=== PATIENT | male | born 1975 | race Caucasian/White ===

== ENCOUNTER 2021-11-01 12:16 | Emergency (ER) | payer SELFPAY ==
[2021-11-01] VITALS (7 sets, daily range): BP systolic 119–135; BP diastolic 88–101; PULSE 77–122; RESP 11–21; TEMP 36.8–37.2; O2SAT 92–98; BMI 30.4
--- NOTE | 2021-11-01 13:03 | EKG12_ITS ---
Test Reason : SOB Blood Pressure : / mmHG Vent. Rate : 109 BPM Atrial Rate : 109 BPM P-R Int : 160 ms QRS Dur : 068 ms QT Int : 314 ms P-R-T Axes : 041 007 040 degrees QTc Int : 422 ms Sinus tachycardia Low voltage QRS (Limb Leads) Confirmed by JOSÉ MIGUEL MUÑOZ, RISHABH ([id number]), telegraph editor CARI COLLINS ([id number]) on 11/03/2021 9:49:41 AM Referred By: MAKENZIE Confirmed By:RISHABH VALDEZ MD
--- NOTE | 2021-11-01 13:04 | EDS_ITS ---
HPI History of Present Illness Chief Complaint: Shortness of Breath Narrative Narrative: 46-year-old male presenting with dyspnea. He states he has COPD and is a smoker. He states that on a good day he smokes about a half a pack of cigarettes a day and on a bad day he smokes about 2 packs of cigarettes a day. He states he started feeling short of breath this morning at about 830. He denies any fever, chills. He does admit to shortness of breath but does not have any chest pain. He does state that he has some left lower back pain. This hurts worse with twisting and moving. Denies any trauma. No loss of bladder or bowel control. PFSH PFSH Home Medications Vitamin 11/01/21 [History Last Taken Unknown] albuterol sulfate [Ventolin HFA] 1 - 2 puff INHALATION Q4H PRN PRN #8.5 g 11/01/21 [Rx Last Taken Unknown] potassium 11/01/21 [History Last Taken Unknown] prednisone 50 mg PO DAILY 3 Days #15 tab 11/01/21 [Rx Last Taken Unknown] Allergy/AdvReac Type Severity Reaction Status Date / Time hydromorphone [From Dilaudid] Allergy Other Verified 11/01/21 12:17 ibuprofen Allergy Rash Verified 05/25/17 15:47 morphine AdvReac Other Verified 05/25/17 15:47 naproxen AdvReac Other Verified 05/25/17 18:50 Social History Smoking Status: Current every day smoker tobacco type: cigarettes ROS ROS ED Constitutional Constitutional ED: Denies chills, fever(s) or sweats Eyes Eyes: Denies blurry vision ENT ENT ED: Denies rhinorrhea or sore throat Cardiovascular Cardiovascular: Denies chest pain or palpitations Respiratory/Chest Respiratory/Chest: Reports cough, dyspnea and dyspnea on exertion Gastrointestinal Gastrointestinal: Denies abdominal pain, nausea or vomiting Genitourinary Genitourinary ED: Denies dysuria or hematuria Musculoskeletal Musculoskeletal: Denies arthralgias or myalgias Integumentary Denies rash Neurologic Neurologic: Denies headache(s), paresthesias or weakness Psychiatric Psychiatric: Denies anxiety or depression Endocrine Endocrinology: Denies polydipsia or polyuria EXAM Physical Exam Const Vital Signs: 11/01/21 12:17 11/01/21 12:18 11/01/21 12:19 Temperature 98.3 F 98.3 F Temperature Source Oral Oral Pulse Rate 122 H 122 H Respiratory Rate 14 14 Respiratory Effort Normal Non-Labored Respiratory Depth Normal Respiratory Pattern Normal Blood Pressure 126/88 H 126/88 H Blood Pressure Mean 100 100 Pulse Ox 98 98 Oxygen Delivery Method Room Air Room Air Room Air 11/01/21 13:15 11/01/21 13:18 11/01/21 14:18 Temperature 98.2 F 98.9 F Temperature Source Temporal Temporal Pulse Rate 77 97 83 Respiratory Rate 11 L 18 21 H Respiratory Effort Respiratory Depth Respiratory Pattern Normal Blood Pressure 135/101 H 119/92 H Blood Pressure Mean 112 101 Pulse Ox 98 92 Oxygen Delivery Method Room Air Room Air 11/01/21 14:51 Temperature Temperature Source Pulse Rate Respiratory Rate 21 H Respiratory Effort Respiratory Depth Respiratory Pattern Blood Pressure Blood Pressure Mean Pulse Ox Oxygen Delivery Method Positive well nourished General Appearance ED: NAD HEENT Reports moist mucous membranes atraumatic Eyes PERRL and EOMs intact bilaterally Resp normal respiratory effort Auscultation: wheezes throughout GI Palpation: soft Back/Spine Back/Spine Narrative: Left lumbar paraspinal muscular tenderness. No midline spinal deformity or step-off. No CVA tenderness. Extremity normal to inspection General Extremety ED: Negative for edema or tenderness General Extremity: Negative for edema Neuro oriented x3 and CN's II-XII intact bilaterally Sensorium / Orientation: alert Motor Exam: strength 5/5 throughout MDM MDM MDM Narrative Medical decision making narrative: Patient presented with shortness of breath and admits to smoking at least half a pack of cigarettes per day to 2 packs a day. I obtained blood work and his CBC and BMP are essentially unremarkable. High-sensitivity troponin is 4 and is not having chest pain. Although he reports pain it is in his left lower back and not associated with his lungs. EKG on my interpretation was sinus tachycardia with a ventricular rate of 109 bpm without sign of ischemic change patient is not hypoxic, tachypneic. He is slightly tachycardic. He is nontoxic-appearing. His chest x-ray on my interpretation shows no acute cardiopulmonary process and the radiologist does agree. After Solu-Medrol and breathing treatments he feels improved and on reevaluation he is resting comfortably. After waking him he states he feels improved. He feels he can go home. I will provide him with a burst of prednisone and albuterol. Return precautions were discussed. Smoking cessation was discussed. Impression 1. COPD exacerbation Lab Data Attestation: I reviewed the patient's lab results. Labs: Laboratory Results - last 24 hr 11/01/21 11/01/21 12:07 12:07 WBC 11.5 H RBC 5.70 Hgb 18.5 H* Hct 53.5 MCV 93.9 MCH 32.5 H MCHC 34.6 RDW Std Deviation 42.5 RDW Coeff of Mahsa 12.2 Plt Count 252 MPV 10.7 Immature Gran % (Auto) 0.400 Neut % (Auto) 56.1 Lymph % (Auto) 30.6 [place] % (Auto) 11.3 H Eos % (Auto) 1.0 Baso % (Auto) 0.6 Absolute Neuts (auto) 6.4 Absolute Lymphs (auto) 3.51 Nucleated RBC % 0 Diff Path Review May foll Platelet Estimate ADEQUATE RBC Morphology NORM C+C Sodium 141 Potassium 3.9 Chloride 107 Carbon Dioxide 28.0 Anion Gap 6 BUN 11 Creatinine 1.15 Estim Creat Clear Calc 85.49 Est GFR (MDRD) Af Amer 88 Est GFR (MDRD) Non-Af 73 BUN/Creatinine Ratio 9.6 L Glucose 89 Calcium 10.7 H Troponin I High Sens 4 Radiography Diagnostic Testing: Clinical Impression(s) from Imaging Studies Chest X-Ray 11/01/21 13:20 IMPRESSION: No acute abnormality is seen. Electronically Signed: Toni Claros MD at 13:51 EDT , Discharge Plan Triage Chief Complaint: Shortness of Breath ED Provider: Aneesh Girard Dx/Rx/DC Orders Instructions: ED COPD Flare Prescriptions: New albuterol sulfate [Ventolin HFA] 90 mcg/actuation HFA aerosol inhaler 1 - 2 puff inhalation Q4H PRN PRN (Reason: Wheezing) Qty: 8.5 RF: 0 prednisone 10 mg tablet 50 mg PO DAILY 3 Days Qty: 15 RF: 0 No Action Vitamin RF: 0 potassium RF: 0 Primary Care Provider: Care Physician,No Primary Referrals: Joel Guthrie DO [STAFF PHYSICIAN] - 3-5 Days Care Physician,No Primary [Primary Care Provider] - Disposition Disposition: Home, Self Care Discharge Date/Time: 11/01/21 15:11
[2021-11-01] MEDS: Ipratropium/Albuterol Sulfate 3 ML AMPUL.NEB INHALATION (13:13)
[2021-11-01] MEDS: Albuterol 2.5 MG/3 ML VIAL.NEB. INHALATION (13:13)
--- NOTE | 2021-11-01 13:20 | RAD_ITS ---
STUDY: X-RAY CHEST REASON FOR EXAM: Male, 46 years old. Dyspnea TECHNIQUE: Single AP portable view of the chest. COMPARISON: Comparison is made with prior study of 08/24/2016. FINDINGS: EKG electrodes are seen. The lungs are clear and expanded. There is no demonstrated pleural abnormality. Normal size heart. Normal mediastinum and nettie. Normal visualized pulmonary arteries. Normal visualized aortic arch and descending thoracic aorta. There are degenerative changes of the visualized thoracic spine. Normal visualized ribs, clavicles, and shoulders. There is no demonstrated abnormality of the visualized soft tissue structures of the upper abdomen. RAD/Chest 1 View (Portable) IMPRESSION: No acute abnormality is seen. Electronically Signed: Toni Claros MD at 13:51 EDT ,
[2021-11-01 13:22] LABS: Absolute Lymphocyte Count 3.51 X10^3/uL (0.83-4.51); Absolute Neutrophil Count 6.4 X10^3/uL (2.0-7.7); Basophil# 0.07 X10^3/uL; Basophil% 0.6 % (0-1); Eosinophil# 0.12 X10^3/uL; Hematocrit 53.5 % (40-54); Lymphocyte # 3.51 X10^3/ul (0.83-4.51); Lymphocyte % 30.6 % (19-41); Mean Corp Hgb Conc 34.6 g/dL (32-36); Mean Corpuscular Hgb 32.5 pg (27.0-32.0); Mean Corpuscular Volume 93.9 fL (80-94); Mean Platelet Vol. 10.7 fl (6.2-12.0); Monocyte% 11.3 % (0-10); NRBC Flagged by Analyzer 0 % (0-5); Neutrophil # 6.42 X10^3/uL (2.7-7.7); Neutrophil % 56.1 % (47-70); Platelet Count 252 K/mm3 (150-450); RBC Distribution Width CV 12.2 % (11.6-14.6); RBC Distribution Width SD 42.5 fl (35.1-43.9); White Blood Count 11.5 K/mm3 (4.4-11.0)
[2021-11-01] MEDS: MethylPREDNISolone 125 MG/2 ML Vial IV (13:23)
[2021-11-01 13:29] LABS: Anion Gap 6 (5-15); BUN 11 mg/dL (7-18); BUN/Creat Ratio 9.6 RATIO (10-20); Calcium,Total 10.7 mg/dL (8.5-10.1); Chloride 107 mmol/L (98-107); Creatinine, Serum 1.15 mg/dL (0.70-1.30); EST Glomerular Filtration Rate 73 mL/min (>60); Est Glom Filt Rate - Afr Amer 88 mL/min (>60); Estimated Creatinine Clearance 85.49 ml/min; Glucose 89 mg/dL (74-106); Potassium 3.9 mmol/L (3.5-5.1); Sodium Level 141 mmol/L (136-145); Troponin-I HS 4 pg/mL (3.0-78.0)
[2021-11-01 14:02] LABS: Differential Indicated SCAN CRITERIA MET; Hemoglobin 18.5 g/dL (13.0-16.5)
[2021-11-01 14:45] LABS: Platelet Estimate ADEQUATE (ADEQ); Red Cell Morphology NORM C+C NORMAL (NORM C&C)
--- NOTE | 2021-11-01 14:47 | CM.ED ---
SW Note Referral Source: Case Find Referral Reason: No PCP SW met with patient. Patient confirmed he has no PCP. SW provided patient with [facility] Healthcare Directory and Where to GO When handout. No other issues or concerns voiced. Plan: Resources provided Aurelia CORBIN
[2021-11-02 13:09] LABS: Pathologist Review Reviewed
== END 2021-11-01 15:11 | disposition home or self-care (01) ==
PROVIDERS: Emergency Provider Student in an Organized Health Care Education/Training Program; Visit Provider Student in an Organized Health Care Education/Training Program
DX: J44.1 Chronic obstructive pulmonary disease with (acute) exacerbation (principal); F17.210 Nicotine dependence, cigarettes, uncomplicated
CPT/HCPCS: 71045; 80048; 84484; 85025; 93005; 94640; 96374; 99285; A4216

== ENCOUNTER 2025-01-02 17:03 | Emergency (ER) | payer SELFPAY ==
[2025-01-02 17:04] VITALS: BP 120/79; PULSE 81; RESP 18; TEMP 36.3; O2SAT 97; BMI 27.2
--- NOTE | 2025-01-02 17:15 | ED.RN ---
Pt states he can't hardly sit and unwilling to wait for a room at this time.
== END 2025-01-02 17:15 | disposition left against medical advice (07) ==
LOC: ED 17:18
DX: Z53.21 Procedure and treatment not carried out due to patient leaving prior to being seen by health care provider (principal)

== ENCOUNTER 2025-02-27 11:53 | Emergency (ER) | payer SELFPAY ==
[2025-02-27 11:56] VITALS: BP 125/88; PULSE 67; RESP 16; TEMP 36.6; O2SAT 98; BMI 27.6
[2025-02-27 11:59] VITALS: BP 125/88; PULSE 67; RESP 16; TEMP 36.6; O2SAT 98
--- NOTE | 2025-02-27 12:02 | EDS_ITS ---
HPI History of Present Illness Chief Complaint: Chest Pain Informant: patient Onset/Context/Timing Onset: Days (10) Context: Gradual Onset Timing: Continuous Quality: Sharp in the chest and pressure in his head Location: Substernal and generalized headache Worsened by: Nothing Relieved by: Pressure on his chest Narrative Narrative: Patient presents with chest pain and headache. Patient states he has had the headache for approximately 10 days. Patient states the chest pain started today. Patient describes his pain as sharp in his chest and pressure in his head. Patient states the chest pain is over the substernal area. Patient states his headache is generalized. Patient states his chest pain gets better when he is able to push on his chest. Patient admits to some shortness of breath and cough. Patient also admits to some nausea but denies any vomiting. Patient denies any visual changes. Patient denies any hearing changes. Patient denies any paresthesias or weakness. [facility] Medical History (Updated 02/27/25 @ 14:[address] Jose Flowers, ) Hx of substance abuse Anxiety Chronic neck pain Chronic back pain Home Medications ?Medication ?Instructions ?Recorded ?Last Taken ?Type NK 02/27/25 Unknown History Allergy/AdvReac Type Severity Reaction Status Date / Time hydromorphone (From Dilaudid) Allergy Other Verified 02/27/25 12:00 ibuprofen Allergy Rash Verified 02/27/25 12:00 morphine AdvReac Other Verified 02/27/25 12:00 naproxen AdvReac Other Verified 02/27/25 12:00 Surgical History Hx of inguinal herniorrhaphy S/P ORIF (open reduction internal fixation) fracture Social History Smoking Status: Current every day smoker tobacco type: cigarettes ROS ROS ED Constitutional Constitutional ED: Denies chills or fever(s) Eyes Eyes: Reports blurry vision; Denies change in vision ENT ENT ED: Reports rhinorrhea; Denies sore throat Cardiovascular Cardiovascular: Reports chest pain; Denies palpitations Respiratory/Chest Respiratory/Chest: Reports cough and dyspnea Gastrointestinal Gastrointestinal: Reports nausea; Denies vomiting Genitourinary Genitourinary ED: Denies dysuria or hematuria Musculoskeletal Musculoskeletal: Reports back pain and neck pain Integumentary Denies abscess or rash Neurologic Neurologic: Reports headache(s); Denies weakness Allergic/Immunologic Allergic/Immunologic ED: Denies mouth swelling or urticaria EXAM Physical Exam Const Vital Signs: 02/27/25 11:56 02/27/25 11:59 02/27/25 12:47 Temperature 98 F 98 F Temperature Source Oral Oral Pulse Rate 67 67 Respiratory Rate 16 16 Respiratory Effort Normal Non-Labored Blood Pressure 125/88 H 125/88 H Blood Pressure Mean 100 100 Pulse Ox 98 98 Oxygen Delivery Method Room Air Room Air 02/27/25 12:59 02/27/25 13:00 02/27/25 14:00 Temperature 98.2 F 98.2 F 97.8 F Temperature Source Oral Oral Oral Pulse Rate 68 58 L 54 L Respiratory Rate 19 H 11 L 19 H Respiratory Effort Blood Pressure 119/78 117/69 147/72 H Blood Pressure Mean 91 85 97 Pulse Ox 97 98 97 Oxygen Delivery Method Room Air Room Air Positive well nourished and well developed General Appearance ED: well developed and NAD HEENT Reports moist mucous membranes Eyes PERRL and EOMs intact bilaterally Neck supple and no JVD Chest Wall Chest Narrative: There is tenderness to palpation over the sternal area. There is no bony crepitance or step-off. There is no subcutaneous emphysema palpated. Resp normal respiratory effort and clear to auscultation bilaterally Cardio regular rate and regular rhythm GI non-tender and non-distended Palpation: soft Extremity normal to inspection General Extremety ED: Negative for edema or tenderness General Extremity: Negative for edema Neuro oriented x3, CN's II-XII intact bilaterally and no sensory deficits noted Sensorium / Orientation: alert Motor Exam: strength 5/5 throughout Psych mental status grossly normal MDM MDM MDM Narrative Medical decision making narrative: Differential diagnosis includes intracranial bleeding, tension headache, migraine headache, cervical strain, cardiac dysrhythmia, cardiac ischemia, pneumonia, bronchitis, gastroesophageal reflux disease, and musculoskeletal chest pain. EKG will be obtained to assess for cardiac dysrhythmia and cardiac ischemia. CT scan of the brain will be obtained to assess for intracranial bleeding and stroke. Chest x-ray will be obtained to assess for pneumonia and bronchitis. CBC will be obtained to assess for leukocytosis and anemia. Comprehensive metabolic profile will be obtained to assess for hepatic function, renal function, and electrolyte abnormality. PT with INR and PTT will be obtained to assess for coagulopathy. Urinalysis will be obtained to assess for urinary tract infection and hematuria. COVID-19, influenza, and RSV PCR will be obtained to assess for viral illness. Lab Data Attestation: I reviewed the patient's lab results. Lab results narrative: CBC was reviewed. There is a mild leukocytosis of 12.5. Hemoglobin was slightly elevated at 17.3. The remainder is within normal limits. Comprehensive metabolic profile was reviewed and was essentially within normal limits. PT with INR and PTT were reviewed and were within normal limits. Urinalysis was reviewed. There is no evidence of urinary tract infection or hematuria. Labs: Laboratory Results - last 24 hr 02/27/25 02/27/25 12:20 13:20 WBC 12.5 H RBC 5.23 Hgb 17.3 H Hct 49.0 MCV 93.7 MCH 33.1 H MCHC 35.3 RDW Std Deviation 44.6 H RDW Coeff of Mahsa 12.9 Plt Count 175 MPV 10.1 Immature Gran % (Auto) 0.300 Neut % (Auto) 67.1 Lymph % (Auto) 23.8 [place] % (Auto) 7.6 Eos % (Auto) 0.6 Baso % (Auto) 0.6 Absolute Neuts (auto) 8.4 H Absolute Lymphs (auto) 2.98 Nucleated RBC % 0 PT 13.6 INR 1.0 APTT 27.9 Sodium 137 Potassium 3.9 Chloride 103 Carbon Dioxide 23.3 Anion Gap 11 BUN 10 Creatinine 0.61 L Estim Creat Clear Calc 156.02 Est GFR (MDRD) Non-Af 118 BUN/Creatinine Ratio 16.5 Glucose 87 Calcium 9.3 Total Bilirubin 0.98 AST 55 H ALT 54 H Alkaline Phosphatase 76 Total Protein 7.3 Albumin 4.2 Globulin 3.1 Albumin/Globulin Ratio 1.4 Urine Color Yellow Urine Clarity Clear Urine pH 6.0 Ur Specific [place] 1.015 Urine Protein 30 H Urine Glucose (UA) Normal Urine Ketones 5 H Urine Occult Blood Negative Urine Nitrite Negative Urine Bilirubin Negative Urine Urobilinogen 1 H Ur Leukocyte Esterase Negative Urine RBC 0 SEEN Urine WBC 0 SEEN Ur Squamous Epith Cells 0 SEEN Urine Bacteria 0 SEEN Urine Mucus 0 SEEN Radiography Chest X-Ray - ED: 2 View, Read by Radiologist and - (Right basilar atelectasis versus infiltrate) Diagnostic Testing: Clinical Impression(s) from Imaging Studies Brain CT 02/27/25 12:19 IMPRESSION: Negative noncontrasted head CT. Reading Location: [facility]- Chest X-Ray 02/27/25 13:05 IMPRESSION: Lungs are hypoinflated, with asymmetric airspace disease of the right lung base, particularly medially. Differential diagnosis includes atelectasis and pneumonitis. No evidence of pulmonary edema. No pleural effusion or pneumothorax is seen. The cardiomediastinal silhouette is within the normal range. Mild thoracic spine degenerative changes are noted. No acute osseous process is seen. Reading Location: [place] [id number] CT scan of the brain was obtained. There is no acute intracranial abnormality. This was interpreted by the radiologist and was also independently reviewed by myself. PA and lateral chest x-ray was obtained. There are 2 views. On my independent interpretation, lung leon show questionable right basilar infiltrate versus atelectasis. There is normal cardiac silhouette. Bony thorax shows mild degenerative changes. There is no acute process noted. Radiologist also interpreted the x-ray and agrees. EKG Initial EKG: Attestation: I personally reviewed and interpreted this EKG as follows: Interpretation: No Acute Injury Pattern and Sinus Bradycardia (53) Comments: EKG was obtained. On my independent interpretation, it showed a sinus bradycardia with a rate of 53. [place] interval, QRS interval, and QTc intervals were all normal. [place] was normal. There are no acute ST or T wave changes. Prior EKG tracings: available for review Prior: Unchanged (11/01/2021) Treatment and Re-Evaluation :: Patient was given IV fluids, Reglan, and Benadryl. Patient states his headache was improving after this. Patient was advised of his findings. Patient was given a dose of Toradol here. Patient was instructed to rest in a dark quiet room. Patient was instructed to follow-up with his primary care physician in 5 to 7 days. Patient understood and was agreeable with the plan. All questions were answered. Discharge Plan Triage Chief Complaint: Chest Pain ED Provider: Jose Flowers Dx/Rx/DC Orders Clinical Impression: Headache, Chest pain, Tobacco abuse Instructions: ED Chest Pain, Uncertain Cause, ED Headache, Tension, ED, Migra ine (Classical) Prescriptions: No Action NK Stand Alone Forms: Work / School Excuse Primary Care Provider: Care Physician,No Primary Referrals: Care Physician,No Primary [Primary Care Provider, Medical] Judi Robin, [employer] FIELD OPERATOR-C [[facility]] - 5-7 Days Print Language: Turkish Disposition Disposition: Home, Self Care
--- NOTE | 2025-02-27 12:19 | CT_ITS ---
PROCEDURE: BRAIN/HEAD WITHOUT CONTRAST 02/27/2025 REASON FOR EXAM: PAIN Headache for 10 days, worsening the last 3 days. TECHNIQUE: Procedure Code: CTBR Modality: CT Procedure: BRAIN/HEAD WITHOUT CONTRAST Coronal and Sagittal reconstruction series were provided. One or more dose reduction techniques were used (e.g., Automated exposure control, adjustment of the mA and/or kV according to patient size, use of iterative reconstruction technique. RADIATION DOSE SUMMARY: CTDlvol: 44.99 mGy DLP: 829.85 mGycm COMPARISON: None. FINDINGS: Brain: No intracranial hemorrhage, mass, or mass effect is seen. No extra-axial fluid collection is noted. No orbital pathology is seen. CSF Spaces: Normal Sinuses/Mastoids: Clear at visualized levels Bones: Unremarkable. CT/Brain/Head without Contrast IMPRESSION: Negative noncontrasted head CT. Reading Location: [place] [address]
[2025-02-27 12:37] LABS: Hematocrit 49.0 % (40-54); Hemoglobin 17.3 g/dL (13.0-16.5); Immature Granulocytes Count 0.040 X10^3/uL (0.0-0.0); Mean Corp Hgb Conc 35.3 g/dL (32-36); Mean Corpuscular Volume 93.7 fL (80-94); Mean Platelet Vol. 10.1 fl (6.2-12.0); NRBC Flagged by Analyzer 0 % (0-5); Platelet Count 175 K/mm3 (150-450); RBC Distribution Width CV 12.9 % (11.6-14.6); RBC Distribution Width SD 44.6 fl (35.1-43.9); Red Blood Count 5.23 M/mm3 (4.6-6.2); White Blood Count 12.5 K/mm3 (4.4-11.0)
[2025-02-27] MEDS: 0.9% Normal Saline (1000mL) 1,000 ML 999 ML IV (12:45)
[2025-02-27] MEDS: DiphenhydrAMINE 50 MG/ML Syringe 25 MG IV (12:46)
[2025-02-27 12:59] VITALS: BP 119/78; PULSE 68; RESP 19; TEMP 36.8; O2SAT 97
[2025-02-27 13:00] VITALS: BP 117/69; PULSE 58; RESP 11; TEMP 36.8; O2SAT 98
[2025-02-27 13:03] LABS: Prothrombin Time (Protime)PT. 13.6 SECONDS (11.7-14.9)
[2025-02-27 13:04] LABS: AST(SGOT) 55 U/L (<=37); Alanine Aminotransfer ALT/SGPT 54 U/L (<=46); Albumin, Serum 4.2 g/dL (3.5-5.0); Alkaline Phosphatase 76 U/L (40-129); Anion Gap 11 (5-15); BUN 10 mg/dL (4-19); BUN/Creat Ratio 16.5 RATIO (10-20); Calcium,Total 9.3 mg/dL (7.6-11.0); Carbon Dioxide 23.3 mmol/L (21.0-32.0); Chloride 103 mmol/L (98-108); Estimated Creatinine Clearance 156.02 ml/min (50-250); Globulin 3.1 g/dL (2.2-4.2); Glucose 87 mg/dL (70-99); Partial Thromboplast Time 27.9 Seconds (24.1-36.2); Potassium 3.9 mmol/L (3.3-5.1)
--- NOTE | 2025-02-27 13:05 | RAD_ITS ---
PROCEDURE: CHEST PA AND LATERAL 02/27/2025 REASON FOR EXAM: CHEST PAIN TECHNIQUE: Procedure Code: RADCXR Modality: DX Procedure: CHEST PA AND LATERAL COMPARISON: None provided. RAD/Chest PA and Lateral IMPRESSION: Lungs are hypoinflated, with asymmetric airspace disease of the right lung base , particularly medially. Differential diagnosis includes atelectasis and pneumonitis. No evidence of pulmonary edema. No pleural effusion or pneumothorax is seen. The cardiomediastinal silhouette is within the normal range. Mild thoracic spine degenerative changes are noted. No acute osseous process is seen. Reading Location: [place] [address]
[2025-02-27 13:28] LABS: Mucous, Urine 0 SEEN /hpf (<or=2+); Red Blood Cells-Urine 0 SEEN /hpf (0-5); Squamous Epithelial Cells - UA 0 SEEN /hpf (0-5)
[2025-02-27 13:40] LABS: Color, Urine Yellow (Yellow); Glucose, Dipstick Normal (Normal); Ketone-Dipstick 5 mg/dl (Negative); Leukocyte Esterase-Dipstick Negative /ul (Negative); Nitrite-Dipstick Negative (Negative); Occult Blood-Urine Negative /ul (Negative); Protein-Dipstick 30 mg/dl (Negative); Specific Gravity, Urine 1.015 (1.002-1.030); Urine Bilirubin Dipstick Negative (Negative)
[2025-02-27 14:00] VITALS: BP 147/72; PULSE 54; RESP 19; TEMP 36.6; O2SAT 97
[2025-02-27] MEDS: Ketorolac 30 MG/ML Syringe IV (15:12)
[2025-02-27 15:14] VITALS: BP 127/84; PULSE 63; RESP 18; TEMP 36.9; O2SAT 98
--- NOTE | 2025-02-27 15:37 | CM.ED ---
Social Work Reason for visit: No PCP Patient confirmed that he does not currently have a PCP. Patient reports to going to [facility] in the past, but reports receiving a large bill from them and was not happy with the care. SW offered [facility] provider list. Patient accepting of same. Samira Felix, BOTTLING SUPERVISOR, CONTINUOUS CHURN BUTTERMAKER
== END 2025-02-27 15:21 | disposition home or self-care (01) ==
PROVIDERS: Emergency Provider Emergency Medicine; Visit Provider Emergency Medicine
DX: R07.89 Other chest pain (principal); R51.9 Headache, unspecified; R06.02 Shortness of breath; R11.0 Nausea; F17.210 Nicotine dependence, cigarettes, uncomplicated
CPT/HCPCS: 70450; 71046; 80053; 81001; 85025; 85610; 85730; 87631; 93005; 96361; 96374; 96375; 99284; A4216